=== PATIENT | male | born 1960 | race Two or more races ===

== ENCOUNTER → 2025-01-30 | Outpatient (CLI) | payer BC, SELFPAY ==
[2025-01-30 09:28] LABS: Basophils # (Auto) 0.1 Thou/mm3 (0.0-0.2); Basophils % (Auto) 1 % (0-2.5); Eosinophils # (Auto) 0.3 Thou/mm3 (0.0-0.5); Eosinophils % (Auto) 4 % (0-10); Hematocrit 44.2 % (41.0-53.0); Hemoglobin 14.5 g/dL (13.5-16.0); Immature Granulocytes % (Auto) 1 % (0-0); Immature Granulocytes Auto 0.03 Thou/mm3 (0.00-0.00); Lymphocytes # (Auto) 2.1 Thou/mm3 (1.0-4.8); Lymphocytes % (Auto) 33 % (10-50); Mean Corpuscular HGB Conc 32.8 g/dl (31.0-37.0); Mean Corpuscular Hemoglobin 28.4 pg (25.0-35.0); Mean Corpuscular Volume 87 fL (80-100); Monocytes # (Auto) 0.4 Thou/mm3 (0.0-0.8); Monocytes % (Auto) 7 % (0-12); Neutrophils # (Auto) 3.4 Thou/mm3 (1.8-7.7); Neutrophils % (Auto) 55 % (37-80); Nucleated Red Blood Cell % 0 /100 WBC (0); Platelet Count 309 Thou/mm3 (140-440); RDW Standard Deviation 43.5 fL (35.1-43.9); Red Blood Count 5.11 Miln/mm3 (4.50-5.90); White Blood Count 6.2 Thou/mm3 (3.8-10.6)
[2025-01-30 09:45] LABS: Alanine Aminotransferase 20 U/L (10-49); Albumin, Serum 4.4 gm/dL (3.4-4.8); Albumin/Globulin Ratio 1.8 (1.2-2.2); Alkaline Phosphatase 97 U/L (46-116); Anion Gap 9 (7-16); Aspartate Amino Transferase 18 U/L (0-34); BUN/Creatinine Ratio 16 Ratio (12-20); Bilirubin,Total 0.5 mg/dL (0.3-1.2); Blood Urea Nitrogen 14 mg/dL (9-23); Calcium 9.2 mg/dL (8.3-10.6); Calcium (Corrected) 9.2 mg/dL (8.5-10.1); Cardiac Risk Estimate 3.6 RATIO (4.0-6.7); Chloride 106 mMol/L (98-107); Cholesterol 154 mg/dL (132-200); Creatinine (Component) 0.9 mg/dL (0.6-1.3); Globulin 2.4 gm/dL (2.3-3.5); Glucose 153 mg/dL (74-106); HDL Cholesterol 43 mg/dL (40-60); LDL Cholesterol,Calculated 62 mg/dL (0-130); Osmolality,Calculated 284 (275-295); Potassium 4.6 mMol/L (3.4-5.1); Sodium 141 mMol/L (136-145); Thyroid Stimulating Hormone 1.89 uIU/mL (0.55-4.78); Total Protein 6.8 gm/dL (5.7-8.2); Triglycerides 246 mg/dL (30-150); Uric Acid 5.4 mg/dL (3.7-9.2); eGFR > 60 See Note
[2025-01-30 09:47] LABS: Creatinine MALB Rnd Ur 61 mg/dL (30-125); Microalbumin Creat Ratio 7 mg/gCrea (<30); Microalbumin, Random Urine 4 mg/L (0-300)
[2025-01-30 09:48] LABS: PSA Medicare Annual Scrn 1.39 ng/mL (0-4.00)
[2025-01-30 10:01] LABS: Glucose Estimated Average 163 mg/dL (80-131); Hemoglobin A1C 7.3 % Hgb (4.8-6.0)
== END | disposition home or self-care (01) ==
PROVIDERS: PCP Internal Medicine; Referring Provider Internal Medicine; Visit Provider Internal Medicine
DX: I10 Essential (primary) hypertension (principal); M10.9 Gout, unspecified; E11.65 Type 2 diabetes mellitus with hyperglycemia; E03.9 Hypothyroidism, unspecified; E78.5 Hyperlipidemia, unspecified; R35.1 Nocturia
CPT/HCPCS: 36415; 80053; 80061; 82043; 82570; 83036; 84153; 84443; 84550; 85025; G0103

== ENCOUNTER → 2025-02-08 | Outpatient (CLI) | payer OTHER, SELFPAY ==
[2025-02-08 09:40] LABS: Basophils # (Auto) 0.1 Thou/mm3 (0.0-0.2); Basophils % (Auto) 1 % (0-2.5); Eosinophils # (Auto) 0.2 Thou/mm3 (0.0-0.5); Eosinophils % (Auto) 4 % (0-10); Hematocrit 43.2 % (41.0-53.0); Hemoglobin 14.4 g/dL (13.5-16.0); Immature Granulocytes % (Auto) 1 % (0-0); Immature Granulocytes Auto 0.03 Thou/mm3 (0.00-0.00); Lymphocytes # (Auto) 2.2 Thou/mm3 (1.0-4.8); Lymphocytes % (Auto) 37 % (10-50); Mean Corpuscular HGB Conc 33.3 g/dl (31.0-37.0); Mean Corpuscular Hemoglobin 28.4 pg (25.0-35.0); Mean Corpuscular Volume 85 fL (80-100); Monocytes # (Auto) 0.5 Thou/mm3 (0.0-0.8); Monocytes % (Auto) 9 % (0-12); Neutrophils # (Auto) 2.9 Thou/mm3 (1.8-7.7); Neutrophils % (Auto) 49 % (37-80); Nucleated Red Blood Cell % 0 /100 WBC (0); Platelet Count 292 Thou/mm3 (140-440); RDW Standard Deviation 43.2 fL (35.1-43.9); Red Blood Count 5.07 Miln/mm3 (4.50-5.90); White Blood Count 5.9 Thou/mm3 (3.8-10.6)
[2025-02-08 09:59] LABS: Alanine Aminotransferase 17 U/L (10-49); Albumin, Serum 4.6 gm/dL (3.4-4.8); Albumin/Globulin Ratio 1.8 (1.2-2.2); Alkaline Phosphatase 95 U/L (46-116); Anion Gap 9 (7-16); Aspartate Amino Transferase 19 U/L (0-34); BUN/Creatinine Ratio 12 Ratio (12-20); Bilirubin,Total 0.8 mg/dL (0.3-1.2); Blood Urea Nitrogen 11 mg/dL (9-23); Calcium 9.6 mg/dL (8.3-10.6); Calcium (Corrected) 9.6 mg/dL (8.5-10.1); Carbon Dioxide 25.9 mMol/L (20.0-31.0); Chloride 104 mMol/L (98-107); Creatinine (Component) 0.9 mg/dL (0.6-1.3); Globulin 2.5 gm/dL (2.3-3.5); Glucose 163 mg/dL (74-106); Osmolality,Calculated 280 (275-295); Potassium 4.2 mMol/L (3.4-5.1); Sodium 139 mMol/L (136-145); Total Protein 7.1 gm/dL (5.7-8.2); eGFR > 60 See Note
== END | disposition home or self-care (01) ==
LOC: COPL 08:51
PROVIDERS: PCP Internal Medicine; Referring Provider Orthopaedic Surgery; Visit Provider Orthopaedic Surgery
DX: Z79.1 Long term (current) use of non-steroidal anti-inflammatories (NSAID) (principal)
CPT/HCPCS: 36415; 80053; 85025

== ENCOUNTER → 2025-08-01 | Outpatient (CLI) | payer BC, MEDICARE, SELFPAY ==
[2025-08-01 08:39] LABS: Basophils # (Auto) 0.1 Thou/mm3 (0.0-0.2); Basophils % (Auto) 1 % (0-2.5); Eosinophils # (Auto) 0.2 Thou/mm3 (0.0-0.5); Eosinophils % (Auto) 3 % (0-10); Hematocrit 43.7 % (41.0-53.0); Hemoglobin 14.3 g/dL (13.5-16.0); Immature Granulocytes Auto 0.02 Thou/mm3 (0.00-0.00); Lymphocytes # (Auto) 2.2 Thou/mm3 (1.0-4.8); Lymphocytes % (Auto) 32 % (10-50); Mean Corpuscular HGB Conc 32.7 g/dl (31.0-37.0); Mean Corpuscular Hemoglobin 28.7 pg (25.0-35.0); Mean Corpuscular Volume 88 fL (80-100); Monocytes # (Auto) 0.5 Thou/mm3 (0.0-0.8); Monocytes % (Auto) 7 % (0-12); Neutrophils # (Auto) 3.9 Thou/mm3 (1.8-7.7); Neutrophils % (Auto) 57 % (37-80); Nucleated Red Blood Cell # 0.00 Thou/mm3 (0.00-0.00); Nucleated Red Blood Cell % 0 /100 WBC (0); Platelet Count 301 Thou/mm3 (140-440); RDW Standard Deviation 46.1 fL (35.1-43.9); Red Blood Count 4.99 Miln/mm3 (4.50-5.90); White Blood Count 6.8 Thou/mm3 (3.8-10.6)
[2025-08-01 09:04] LABS: Glucose Estimated Average 160 mg/dL (80-131); Hemoglobin A1C 7.2 % Hgb (4.8-6.0)
[2025-08-01 09:08] LABS: Alanine Aminotransferase 25 U/L (10-49); Albumin, Serum 4.6 gm/dL (3.4-4.8); Albumin/Globulin Ratio 2.0 (1.2-2.2); Alkaline Phosphatase 101 U/L (46-116); Anion Gap 12 (7-16); Aspartate Amino Transferase 23 U/L (0-34); BUN/Creatinine Ratio 10 Ratio (12-20); Bilirubin,Total 0.8 mg/dL (0.3-1.2); Blood Urea Nitrogen 9 mg/dL (9-23); Calcium 9.6 mg/dL (8.3-10.6); Calcium (Corrected) 9.6 mg/dL (8.5-10.1); Carbon Dioxide 22.6 mMol/L (20.0-31.0); Cardiac Risk Estimate 3.1 RATIO (4.0-6.7); Chloride 105 mMol/L (98-107); Cholesterol 125 mg/dL (132-200); Creatinine (Component) 0.9 mg/dL (0.6-1.3); Globulin 2.3 gm/dL (2.3-3.5); Glucose 131 mg/dL (74-106); HDL Cholesterol 40 mg/dL (40-60); LDL Cholesterol,Calculated 45 mg/dL (0-130); Osmolality,Calculated 280 (275-295); Potassium 4.1 mMol/L (3.4-5.1); Sodium 140 mMol/L (136-145); Thyroid Stimulating Hormone 2.20 uIU/mL (0.55-4.78); Total Protein 6.9 gm/dL (5.7-8.2); Triglycerides 202 mg/dL (30-150); eGFR > 60 See Note
[2025-08-01 10:14] LABS: Creatinine MALB Rnd Ur 41 mg/dL (30-125); Microalbumin, Random Urine < 3 mg/L (0-300)
== END | disposition home or self-care (01) ==
LOC: COPL 08:04
PROVIDERS: PCP Internal Medicine; Referring Provider Internal Medicine; Visit Provider Internal Medicine
DX: J30.9 Allergic rhinitis, unspecified (principal); E11.65 Type 2 diabetes mellitus with hyperglycemia; E78.5 Hyperlipidemia, unspecified; E03.9 Hypothyroidism, unspecified
CPT/HCPCS: 36415; 80053; 80061; 82043; 82570; 83036; 84443; 85025

== ENCOUNTER → 2025-11-09 | Outpatient (CLI) | payer MEDICARE, SELFPAY ==
--- NOTE | 2025-11-09 13:42 | XR_ITS ---
EXAMINATION: PA lateral chest 2 views TECHNIQUE: Upright PA lateral chest 2 views Date and time: November 09, 2025, 1443 hours COMPARISON: March 04, 2023 INDICATIONS: Coughing this week. FINDINGS: Normal heart size Lungs are clear. Osseous structures are intact IMPRESSION: No active disease
== END | disposition home or self-care (01) ==
PROVIDERS: PCP Internal Medicine; Referring Provider Internal Medicine; Visit Provider Internal Medicine
DX: R05.9 Cough, unspecified (principal)
CPT/HCPCS: 71046

== ENCOUNTER 2025-11-22 09:14 | Emergency (ER) | payer MEDICARE, SELFPAY ==
[2025-11-22 09:24] VITALS: BP 126/85; PULSE 83; RESP 16; TEMP 36.8; O2SAT 97; BMI 30.7
--- NOTE | 2025-11-22 09:31 | PD.EDRME ---
Rapid Medical Screening Exam RME Arrival date/time: 11/22/25 09:14 65-year-old male with medical history significant for diabetes presents to the Emergency Department for complaint of diarrhea since yesterday Chief Complaint: Nausea/Vomiting/Diarrhea Vital signs: Vital Signs Temperature 98.2 F 11/22/25 09:24 Pulse Rate 83 11/22/25 09:24 Respiratory Rate 16 11/22/25 09:24 Blood Pressure 126/85 H 11/22/25 09:24 Pulse Oximetry (%) 97 11/22/25 09:24 Oxygen Delivery Method Room Air 11/22/25 09:24 Vital signs reviewed by provider: Yes Exam: On exam well-appearing does not appear ill or toxic Clinical Impression: Lab work ordered
[2025-11-22 10:05] LABS: Collection Type, Urine Clean Catch
--- NOTE | 2025-11-22 10:12 | EKG_ITS ---
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
[2025-11-22 10:15] LABS: Bilirubin,Urine Negative (Negative); Blood,Urine Negative (Negative); Clarity,Urine Clear (Clear/Hazy); Color,Urine Lt-Yellow (Lt Yel-Yel); Culture Indicated,Urine Not Indicated; Glucose, Urine Negative (Negative); Ketones,Urine Negative (Negative); Leukocyte Esterase,Urine Negative (Negative); Nitrite,Urine Negative (Negative); PH,Urine 6.0 (5.0-7.0); Protein,Urine Negative (Neg - Trace); RBC,Urine < 1 /hpf (0-3); Specific Gravity,Urine 1.009 (1.001-1.035); Squamous Epithelial Cell,Urine < 1 /hpf (0-5); Urobilinogen,Urine Negative mg/dL (0.0-1.0); WBC,Urine < 1 /hpf (0-5)
--- NOTE | 2025-11-22 10:27 | XR_ITS ---
EXAMINATION: Abdominal series 3 views TECHNIQUE: AP portable chest, AP upright AP supine abdomen 3 views Date and time: November 22, 2025, 1033 hours INDICATIONS: Diarrhea 2 days. FINDINGS: Normal heart size No pneumonia or pulmonary edema Mild air and stool throughout the colon A few loops of minimally air distended small bowel No free air No obstruction IMPRESSION: Nonobstructive bowel gas pattern
[2025-11-22 10:29] LABS: Basophils # (Auto) 0.1 Thou/mm3 (0.0-0.2); Basophils % (Auto) 1 % (0-2.5); Eosinophils # (Auto) 0.3 Thou/mm3 (0.0-0.5); Eosinophils % (Auto) 4 % (0-10); Hematocrit 46.7 % (41.0-53.0); Hemoglobin 15.7 g/dL (13.5-16.0); Immature Granulocytes Auto 0.06 Thou/mm3 (0.00-0.00); Lymphocytes # (Auto) 2.2 Thou/mm3 (1.0-4.8); Lymphocytes % (Auto) 26 % (10-50); Mean Corpuscular HGB Conc 33.6 g/dl (31.0-37.0); Mean Corpuscular Hemoglobin 29.2 pg (25.0-35.0); Mean Corpuscular Volume 87 fL (80-100); Monocytes # (Auto) 0.6 Thou/mm3 (0.0-0.8); Monocytes % (Auto) 7 % (0-12); Neutrophils # (Auto) 5.5 Thou/mm3 (1.8-7.7); Neutrophils % (Auto) 62 % (37-80); Nucleated Red Blood Cell # 0.00 Thou/mm3 (0.00-0.00); Nucleated Red Blood Cell % 0 /100 WBC (0); Platelet Count 352 Thou/mm3 (140-440); RDW Standard Deviation 45.1 fL (35.1-43.9); Red Blood Count 5.38 Miln/mm3 (4.50-5.90); White Blood Count 8.8 Thou/mm3 (3.8-10.6)
[2025-11-22] MEDS: SODIUM CHLORIDE 0.9% 1000 ML 1,000 ML 999 ML IV (10:38)
[2025-11-22 10:47] LABS: Alanine Aminotransferase 16 U/L (10-49); Albumin, Serum 5.0 gm/dL (3.4-4.8); Albumin/Globulin Ratio 1.5 (1.2-2.2); Alkaline Phosphatase 110 U/L (46-116); Anion Gap 11 (7-16); Aspartate Amino Transferase 17 U/L (0-34); BUN/Creatinine Ratio 11 Ratio (12-20); Bilirubin,Total 0.8 mg/dL (0.3-1.2); Blood Urea Nitrogen 11 mg/dL (9-23); Calcium 9.6 mg/dL (8.3-10.6); Calcium (Corrected) 9.6 mg/dL (8.5-10.1); Carbon Dioxide 19.9 mMol/L (20.0-31.0); Chloride 105 mMol/L (98-107); Creatinine (Component) 1.0 mg/dL (0.6-1.3); Estimated Creatinine Clearance 74.8 mL/min (>60); Globulin 3.3 gm/dL (2.3-3.5); Glucose 126 mg/dL (74-106); Lipase 64 U/L (12-53); Magnesium 1.9 mg/dL (1.6-2.6); Osmolality,Calculated 273 (275-295); Potassium 4.0 mMol/L (3.4-5.1); Sodium 136 mMol/L (136-145); Total Protein 8.3 gm/dL (5.7-8.2); eGFR > 60 See Note
[2025-11-22 11:00] VITALS: BP 151/71; PULSE 68; RESP 16; O2SAT 94
[2025-11-22 12:00] VITALS: BP 137/82; PULSE 73; RESP 16; O2SAT 96
[2025-11-22 13:05] VITALS: BP 142/82; PULSE 74; RESP 18; O2SAT 94
--- NOTE | 2025-11-22 13:25 | PD.EDNV ---
Nausea/Vomit./Diarrhea-RME/HPI General Chief complaint: Nausea/Vomiting/Diarrhea Stated complaint: DIARRHEA SINCE YESTERDAY, DEHYDRATED Time Seen by Provider: 11/22/25 09:51 Arrival date/time: 11/22/25 09:14 Limitations: no limitations RME / HPI RME / HPI Narrative: 11/22/25 09:14 65-year-old male with medical history significant for diabetes presents to the Emergency Department for complaint of diarrhea since yesterday DR. HOROWITZ MAIN ED EVALUATION: 65 year old male with history of diabetes, hyperlipidemia, hypothyroidism presents to the ED for evaluation of diarrhea beginning yesterday. Reports the diarrhea to be a watery consistency and yellow brown in color, no blood present. Reports multiple episodes since onset and is accompanied by feeling globally weak and dehydrated. Reportedly has taken Imodium and Pepto-Bismol with little relief. No other associated symptoms reported. Denies fevers, chills, sweats, chest pain, cough, shortness of breath, vomiting, or urinary symptoms. Exam: On exam well-appearing does not appear ill or toxic Impression: Lab work ordered Related Data Home Medications ?Medication ?Instructions ?Recorded ?Confirmed Levothyroxine * (SYNTHROID *) 75 mcg PO QDAY ##90 02/09/17 11/22/25 allopurinol 300 mg tablet 300 mg PO QDAY ##90 02/09/17 11/22/25 gabapentin 300 mg capsule 300 mg PO TID ##270 02/09/17 11/22/25 aspirin 81 mg tablet,delayed 81 mg PO QDAY 08/11/24 11/22/25 release metformin 500 mg tablet 500 mg PO BID 08/11/24 11/22/25 atorvastatin 20 mg tablet 20 mg PO QDAY 11/22/25 11/22/25 diclofenac sodium 1 % topical gel 2 g topical BID 11/22/25 11/22/25 lidocaine 5 % topical patch 1 patch topical Q24H PRN pain 11/22/25 11/22/25 semaglutide 0.25 mg or 0.5 mg (2 0.25 mg subcut QWEEK 11/22/25 11/22/25 mg/3 mL) subcutaneous pen injector (Ozempic) tamsulosin 0.4 mg capsule 0.4 mg PO Q24H 11/22/25 11/22/25 Previous Rx's ?Medication ?Instructions ?Recorded diphenoxylate-atropine 2.5 1 tab PO Q6H PRN diarrhea #10 tabs 11/22/25 mg-0.025 mg tablet (Lomotil) Allergies Allergy/AdvReac Type Severity Reaction Status Date / Time No Known Allergies Allergy Verified 11/22/25 09:16 Review of Systems Review of Systems Systems Reviewed: All systems reviewed, normal except as documented Past Medical History Past Medical History CARDIAC: Positive Cardiac Disorders and Hypercholesterolemia MUSCULOSKELETAL: Positive Musculoskeletal Disorders, Gout and Carpal Tunnel Syndrome (left) ENDOCRINE: Positive Endocrine Disorders, Diabetes Mellitus Type 2, Hypoglycemia and Hypothyroidism OTHER HISTORY: Positive Chicken Pox and Measles Family History FAMILY HISTORY: Positive Family Respiratory Disorders (mother-Bronchitis) and Family Cardiac Disorders (mother-HTN) Social History SMOKING STATUS: Never smoker ED Exam General Limitations: Present no limitations General appearance: Present alert and in no apparent distress Head Head exam: Present atraumatic, normocephalic and normal inspection Eye Eye exam: Present normal appearance, PERRL and EOMI ENT ENT exam: Present normal exam, normal oropharynx and mucous membranes moist Neck Neck exam: Present normal inspection, full ROM and trachea midline Chest Chest inspection: Present normal inspection and symmetric chest wall rise Respiratory Respiratory exam: Present normal lung sounds bilaterally Cardiovascular Cardiovascular exam: Present regular rate, normal rhythm and normal heart sounds Abdominal Exam Abdominal exam: Present soft and normal bowel sounds Extremities Exam Extremities exam: Present normal inspection and full ROM Back Exam Back exam: Present normal inspection and full ROM Neurological Exam Neurological exam: Present alert, oriented X3 and CN II-XII intact Psychiatric Psychiatric exam: Present normal affect and normal mood Skin Skin exam: Present warm, dry, intact and normal color Course Quality Measures none Orders Category Date Time Status Integration Software 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 NOW Care 11/22/25 10:12 Completed Continuous Pulse Oximetry NOW Care 11/22/25 10:12 Completed EKG (ED ONLY) *Do not use* NOW Care 11/22/25 10:12 Completed Insert IV NOW Care 11/22/25 10:12 Completed EKG (ED Only) Stat Exams 11/22/25 10:12 Draft XR abdomen series w chest 1V Stat Exams 11/22/25 10:27 Completed CBC Stat Lab 11/22/25 10:04 Completed Comprehensive Metabolic Panel Stat Lab 11/22/25 10:04 Completed Lipase Stat Lab 11/22/25 10:04 Completed Mag [Magnesium] Stat Lab 11/22/25 10:04 Completed UA, C/S IF [Urinalysis, C/S if Indicated] Stat Lab 11/22/25 09:40 Completed Sodium Chloride 0.9% 1000 ml [Ns] 1,000 ml Med 11/22/25 10:12 Discontinued IV 999 mls/hr Vital Signs Vital signs: Vital Signs Temperature 98.2 F 11/22/25 09:24 Pulse Rate 83 11/22/25 09:24 Respiratory Rate 16 11/22/25 09:24 Blood Pressure 126/85 H 11/22/25 09:24 Pulse Oximetry (%) 97 11/22/25 09:24 Oxygen Delivery Method Room Air 11/22/25 09:24 Pulse ox is 97% on room air which is adequate. Nausea/Vomiting/Diarrhea MDM Narrative MDM Narrative:: Maria Esther Ovalles am scribing for and in the presence of Dr. Horowitz. 65 year old male with history of diabetes, hyperlipidemia, hypothyroidism presents to the ED for evaluation of diarrhea beginning yesterday. Overall, everything looks okay. The CO2 level is slightly elevated, which can be seen with diarrhea. Lomotil was prescribed to help slow the diarrhea. We reviewed all the results, analysis, and treatment plans. Patient is amenable to discharge. Strict return precautions were outlined. Patient data External records reviewed:: [facility] previous records Clinical information provided by:: patient Social determinants that could affect healthcare access:: none Patient has the following chronic illnesses:: diabetes, hyperlipidemia, hypothyroidism How is presenting disease/condition affected by chronic disease/condition?: uneffected by Evaluation data The following diagnostics were reviewed and interpreted by me:: lab results, radiology exam(s) and EKG tracing(s) (EKG @ 10:36am, interpreted by me, normal sinus rhythm, rate 75, no STEMI. ) Lab and/or radiology exams considered but not ordered:: None Interpretation Summary: Ordering Physician: Roshan Horowitz MD Date of Service: 11/22/25 Procedure(s): XR abdomen series w chest 1V Accession Number(s): [id number] cc: Girish Purdy DO; Roshan Horowitz MD; Randall Abad MD~ EXAMINATION: Abdominal series 3 views TECHNIQUE: AP portable chest, AP upright AP supine abdomen 3 views Date and time: November 22, 2025, 1033 hours INDICATIONS: Diarrhea 2 days. FINDINGS: Normal heart size No pneumonia or pulmonary edema Mild air and stool throughout the colon A few loops of minimally air distended small bowel No free air No obstruction IMPRESSION: Nonobstructive bowel gas pattern Dictated By: Randall Abad MD Signed By: <Electronically signed by Randall Abad MD in OV> 11/22/25 1045 Medications / Prescriptions Medications / Prescriptions considered but not ordered:: None Medication administrations:: Medication Administration History Discontinued Medications Sodium Chloride (Ns) 1,000 mls @ 999 mls/hr IV .Q1H1M ONE Stop: 11/22/25 11:12 Last Infusion: 11/22/25 12:28 Dose: Infused Documented By: Admin: 11/22/25 10:38 Dose: 999 mls/hr Documented By: DO See above Consultations Consultation(s) initiated? (list below): No Diagnosis Nausea Differential Diagnosis: food poisoning, gastroenteritis, drug-induced nausea and vomiting and dehydration Most likely diagnosis given after review of the tests above:: Gastroenteritis Admission Indicated Admission indicated?: not indicated Admission Request Was there a request for admission?: No Disposition Plan Disposition Plan: Discharge Discharge Attestation Discharge Attestation: The patient and all family members were given an opportunity to ask questions and understood the discharge instructions. Discharge instructions specifically effects, indications for sooner follow up or return to the emergency department, and the expected course of current diagnosis. Patient condition: Stable Discharge Plan Plan Patient Disposition: HOME (Self Care) Patient condition on transfer: Stable Prescriptions/Referrals Prescriptions/Med Rec: New diphenoxylate-atropine [Lomotil] 2.5-0.025 mg tablet 1 tab PO Q6H MDD 4 PRN (Reason: diarrhea) Qty: 10 0RF No Action aspirin 81 mg tablet,delayed release (DR/EC) 81 mg PO QDAY metformin 500 mg tablet 500 mg PO BID gabapentin 300 MG capsule 300 mg PO TID Qty: 270 allopurinol 300 MG tablet 300 mg PO QDAY Qty: 90 Levothyroxine * (SYNTHROID *) 75 MCG tablet 75 mcg PO QDAY Qty: 90 tamsulosin 0.4 mg capsule 0.4 mg PO Q24H Patient Comments: TAKE 1 CAPSULE BY MOUTH DAILY atorvastatin 20 mg tablet 20 mg PO QDAY Patient Comments: TAKE 1 TABLET BY MOUTH DAILY diclofenac sodium 1 % gel 2 g TOPICAL BID Patient Comments: APPLY 2 GRAMS TOPICALLY TO THE AFFECTED AREA TWICE DAILY DIRECTED lidocaine 5 % adhesive patch,medicated 1 patch TOPICAL Q24H PRN (Reason: pain) Ozempic 0.25 mg or 0.5 mg (2 mg/3 mL) pen injector 0.25 mg SUBCUT QWEEK Patient Comments: INJECT 0.5 MG SUBCUTANEOUSLY ONCE A WEEK Referrals: Girish Purdy DO [Primary Care Provider] - In 1 week Problem List Clinical Impression: Gastroenteritis Patient/Caregiver Discharge Instructions Discharge Activity: activity as tolerated Additional Instructions: Take Lomotil 1 tablet every 6 hours as needed for diarrhea. Drink clear fluids. Print Language: Amharic Stand Alone Forms: Misty Award Info., Patient Portal Info Letter
[2025-11-22 13:44] VITALS: BP 142/81; PULSE 73; RESP 18; TEMP 36.6; O2SAT 95
== END 2025-11-22 13:47 | disposition home or self-care (01) ==
PROVIDERS: Nurse Practitioner Primary Care; Emergency Provider Family Medicine; PCP Internal Medicine
DX: K52.9 Noninfective gastroenteritis and colitis, unspecified (principal); E11.9 Type 2 diabetes mellitus without complications; E78.5 Hyperlipidemia, unspecified; E03.9 Hypothyroidism, unspecified
CPT/HCPCS: 36415; 74022; 80053; 81001; 83690; 83735; 85025; 93005; 96360; 96361; 99284; J7030